=== PATIENT | female | born 1955 | race Caucasian/White ===

== ENCOUNTER 2019-08-04 07:56 | Emergency (ER) | payer OTHER ==
[~2019-08-04] VITALS: Ht 157.5 cm; Wt 59.0 kg
[2019-08-04] MEDS ORDERED: LIPITOR 20 MG T20 M1 PO (08:08)
[2019-08-04 09:01] LABS: CALCIUM 8.8 mg/dL (8.5-10.1); CREATININE 0.8 mg/dL (0.6-1.3); POTASSIUM 3.7 mmol/L (3.5-5.1)
[2019-08-04] MEDS ORDERED: LIDODERM1 EACH TRANSDERM (09:14)
[2019-08-04 09:24] VITALS: BP 121/87
--- NOTE | 2019-08-06 14:48 | EKG ---
[place] [address] ELECTROCARDIOGRAM REPORT Name: GUERO GUADALUPE Room: [facility]#: [id number] Admission: 08/04/19 Attend Phys: Discharge: 08/04/19 Date of : 53 Report #: [id number] THIS REPORT FOR: //name// [facility] ED Test Date: 2019-08-04 Test Time: 08:06:19 Pat Name: GUERO GUADALUPE Department: Room: Gender: F Orthopedic Dentist: : 1955 Requested By: Mann Massey Order Number: [id number] Yasmany MD: Deo Jenkins Measurements Intervals [place] Rate: 86 P: 66 WI: 141 QRS: 33 QRSD: 104 T: 20 QT: 366 QTc: 438 Interpretive Statements Sinus rhythm Baseline wander in lead(s) V5 No previous ECG available for comparison Electronically Signed On 08-06-2019 14:48:45 CDT by Deo Jenkins [email or web address] <ELECTRONICALLY SIGNED> By: Deo Jenkins MD, [facility] 08/06/19 [id number] [id number] 5 Deo Jenkins MD, FACC /EPI
== END 2019-08-04 09:24 | disposition home or self-care (01) ==
LOC: M.ERS 07:56
PROVIDERS: Emergency Medicine Emergency Medical Services
DX: M75.92 Shoulder lesion, unspecified, left shoulder (principal); Z88.0 Allergy status to penicillin; Z88.6 Allergy status to analgesic agent; Z88.2 Allergy status to sulfonamides